=== PATIENT | female | born 2000 | race Hispanic/Latino ===

== ENCOUNTER 2020-08-30 17:55 | Observation (INO) | payer MEDICAID ==
[2020-08-30] MEDS ORDERED: ONDANSETRON 4 MG/2 ML INJ IV PRN (17:56)
[2020-08-30] MEDS ORDERED: POTASSIUM CHLORIDE 10 MEQ 10 MEQ/100 ML BAG IV ONE (18:56)
[2020-08-30 19:46] LABS: Blood Urea Nitrogen 5 mg/dL (7-17); Calcium 9.5 mg/dL (8.4-10.2); Hemolysis Index 7
[2020-08-30 19:53] LABS: BUN/Creatinine Ratio 10
[2020-08-30] MEDS: D5W/LACTATED RINGERS 1,000 ML IV SCH ×2 (20:18→22:02)
[2020-08-30] MEDS: PROMETHAZINE 25 MG RECT SUPP PR SCH (20:18)
[2020-08-30] MEDS: METOCLOPRAMIDE 10 MG/2 ML INJ IV SCH (20:22)
[2020-08-30 21:32] LABS: Bacteria,Urine 1+ /HPF (Negative); Bilirubin,Urine NEG (Negative); Blood,Urine NEG (Negative); Color,Urine Amber (Yellow); Mucus,Urine 3+ /HPF
[2020-08-31] MEDS: D5W/LACTATED RINGERS 1,000 ML IV SCH ×2 (00:15→08:19)
[2020-08-31] MEDS: METOCLOPRAMIDE 10 MG/2 ML INJ IV SCH ×2 (01:39→08:19)
[2020-08-31] MEDS: PROMETHAZINE 25 MG RECT SUPP PR SCH ×2 (01:40→08:30)
[2020-08-31 06:39] LABS: Blood Urea Nitrogen 3 mg/dL (7-17); Calcium 8.4 mg/dL (8.4-10.2); Hemolysis Index 0
[2020-08-31 06:40] LABS: BUN/Creatinine Ratio 6
[2020-08-31] MEDS ORDERED: PRENATAL VIT27-FE FUMARATE-FOLIC ACID VIT TAB PO SCH (10:00)
--- NOTE | 2020-08-31 10:33 | History and Physical Report ---
History of Present Illness Date of examination: 08/31/20 Date of admission: 08/30/20 18:33 Chief complaint: I can't keep anything down History of present illness: Pt is a 20 year old at 11 weeks who presents with complaint of nausea and vomiting since last Sunday. She was seen at [facility] and was sent home. Past History Past Medical History: no pertinent history Past Surgical History: no surgical history Social history: single Medications and Allergies Allergies Allergy/AdvReac Type Severity Reaction Status Date / Time No Known Allergies Allergy Unverified 08/30/20 18:19 Home Medications Medication Instructions Recorded Confirmed Last Taken Type No Known Home Medications [No 08/31/20 08/31/20 Unknown History Reported Home Medications] Active Meds: Active Medications Dextrose/Lactated Ringer's (D5lr) 1,000 mls @ 500 mls/hr IV DIRECT [facility] Stop: 08/31/20 19:59 Last Admin: 08/30/20 22:02 Dose: 500 mls/hr Documented by: Dextrose/Lactated Ringer's (D5lr) 1,000 mls @ 150 mls/hr IV DIRECT [facility] Last Admin: 08/31/20 08:19 Dose: 150 mls/hr Documented by: Metoclopramide HCl (Metoclopramide 10 Mg/2 Ml Inj) 10 mg IV Q6H [facility] Last Admin: 08/31/20 08:19 Dose: 10 mg Documented by: Multivitamins/Iron/Calcium ( [id number] Fumarate-Folic Acid Vit Tab) 1 each PO QDAY [facility] Last Admin: 08/31/20 10:11 Dose: 1 each Documented by: Ondansetron HCl (Ondansetron 4 Mg/2 Ml Inj) 4 mg IV Q6H PRN PRN Reason: N/V unrelieved by Liang Promethazine HCl (Promethazine 25 Mg Rect Supp) 25 mg SC Q6H [facility] Last Admin: 08/31/20 08:30 Dose: Not Given Documented by: Review of Systems All systems: negative Constitutional: weakness Gastrointestinal: nausea, vomiting Integumentary: deferred - Vital Signs Vital signs: Vital Signs Temp Pulse Resp BP Pulse Ox 98.2 F 79 18 104/57 95 08/31/20 00:00 08/31/20 00:00 08/31/20 00:00 08/31/20 00:00 08/31/20 00:00 Temp Pulse Resp BP Pulse Ox 98.0 F 76 16 96/54 96 08/31/20 07:36 08/31/20 07:36 08/31/20 07:36 08/31/20 07:36 08/31/20 07:36 - Physical Exam Breasts: Cardiovascular: Regular rate, Normal S1, Normal S2 Lungs: Positive: Clear to auscultation, Normal air movement Abdomen: Positive: normal appearance, soft, normal bowel sounds. Negative: distention, tenderness Vulva: both: normal Adnexa: both: normal Anus/Rectum: Positive: rectal mass Extremities: Deep Tendon Reflex Grade: Normal +2 Results Result Diagrams: 08/31/20 06:04 Abnormal lab results 08/30/20 08/31/20 Range/Units 18:57 06:04 Sodium 134 L (137-145) mmol/L Potassium 3.0 L 3.4 L (3.6-5.0) mmol/L Chloride 96.9 L (98-107) mmol/L Carbon Dioxide 21 L (22-30) mmol/L BUN 5 L 3 L (7-17) mg/dL Creatinine 0.5 L 0.5 L (0.6-1.2) mg/dL Glucose 104 H (65-100) mg/dL All other labs normal. Assessment and Plan IUP at 11 weeks gestation with hyperemesis. Pt to admitted for monitoring and IV hydration and medicines. Pt potassium was found to be low and was replaced. She has not had any vomiting since she has been admitted.
--- NOTE | 2020-08-31 10:38 | Event Note ---
Date: 08/31/20 Pt tolerated breakfast well. If she continues to do well, will discharge home today with follow up in the office.
[2020-08-31 12:08] VITALS: BP 107/57
== END 2020-08-31 12:30 | disposition home or self-care (01) ==
LOC: 3A 17:55 → UNDOADMOB 17:55 → OB 18:33
PROVIDERS: ADMIT Obstetrics & Gynecology; ATTEND Obstetrics & Gynecology
DX: O21.0 Mild hyperemesis gravidarum (principal); Z3A.11 11 weeks gestation of pregnancy
CPT/HCPCS: 36415; 80048; 81001; 82150; 83690; 96361; 96365; 96376; G0378; G0379; J2765; J3480; J7121; 96374; 96375